=== PATIENT | male | born 1970 | race Two or more races ===

== ENCOUNTER 2018-06-16 17:56 | Inpatient (IN) | payer OTHER ==
[~2018-06-16] VITALS: Ht 170.2 cm; Wt 77.8 kg
[2018-06-16 18:49] LABS: Basophils # (auto) 0 uL; Basophils % (auto) 0.3 % (0.0-2.0); Eosinophils # (auto) 0.2 uL; Eosinophils % (auto) 1.6 % (0.0-7.0); Hemoglobin 14.7 g/dL (13.5-17.5); Lymphocytes # (auto) 0.9 uL; Lymphocytes % (auto) 9.8 % (10.0-50.0); Mean Corpuscular Hemoglobin 30.3 pg (28.0-32.0); Mean Corpuscular Hgb Conc. 33.4 g/dL (32.0-36.0); Mean Corpuscular Volume 90.7 fL (80.0-100.0); Monocytes # (auto) 0.8 uL; Monocytes % (auto) 8.5 % (0.0-12.0); Neutrophils # (auto) 7.6 uL; Neutrophils % (auto) 79.8 % (37.0-80.0); Nucleated Red Blood Cells % 0.1 %; Platelet Count (auto) 168 10^3/uL (140-450); Red Blood Cells 4.85 10^6/uL (4.5-5.90); White Blood Cell 9.6 10^3/uL (4.4-10.8)
[2018-06-16 19:08] LABS: Alanine Aminotransferase 25 U/L (16-61); Albumin 3.3 g/dL (3.4-5.0); Anion Gap 8 (5-15); Aspartate Aminotransferase 15 U/L (15-37); Blood Urea Nitrogen 25 mg/dL (7-18); Calcium 8.5 mg/dL (8.5-10.1); Carbon Dioxide 23 mmol/L (21-32); Chloride 113 mmol/L (98-107); GFR African American 80 mL/min; GFR Non-African American 66 mL/min; Glucose 129 mg/dL (74-106); Potassium 3.3 mmol/L (3.5-5.1); Sodium 144 mmol/L (136-145)
[2018-06-16 19:13] LABS: Alkaline Phosphatase 79 U/L (45-117); Bilirubin, Total 0.5 mg/dL (0.2-1.0); Total Protein 5.9 g/dL (6.4-8.2)
[2018-06-16] MEDS ORDERED: ASPirin 81 mg TAB PO ONE (19:15)
[2018-06-16] MEDS ORDERED: MORPHINE SULFATE 4 MG/ML SYR/VIAL ONE (19:55)
[2018-06-16] MEDS ORDERED: ONDANSETRON HCL 4 MG/2 ML VIAL ONE (19:55)
[2018-06-16 19:56] LABS: INR 1.11 (0.9-1.15); Partial Thromboplastin Time 22.9 sec (23.78-33.04); Prothrombin Time 11.8 sec (9.27-12.13)
[2018-06-16] MEDS ORDERED: ONDANSETRON HCL 4 MG/2 ML VIAL IV ONE (20:30)
[2018-06-16] MEDS ORDERED: MORPHINE SULFATE 4 MG/ML SYR/VIAL IV ONE (20:30)
[2018-06-16] MEDS ORDERED: diphenhdrAMINE HCL 50 MG/1 ML VL IV ONE (22:00)
[2018-06-16] MEDS ORDERED: ACETAMINOPHEN 325 MG TAB PO PRN (23:00)
[2018-06-16] MEDS ORDERED: cloNIDine HCL 0.1 MG TAB PO PRN (23:00)
[2018-06-16] MEDS ORDERED: TEMAZEPAM 15 MG CAP PO PRN (23:00)
[2018-06-16] MEDS ORDERED: ONDANSETRON HCL 4 MG/2 ML VIAL IV PRN (23:00)
[2018-06-16] MEDS ORDERED: NITROGLYCERIN 0.4 MG SL TAB SL PRN (23:00)
[2018-06-16] MEDS ORDERED: MORPHINE SULF INJ 2 MG/ML SYRINGE 1ML IV PRN (23:00)
[2018-06-17] MEDS ORDERED: DEXTROSE (50%) 50ML SYRG IV PRN (00:45)
[2018-06-17 00:50] VITALS: BP 136/79
--- NOTE | 2018-06-17 00:50 | NUR ---
Telemetry admit from ER AXEL OBRIEN admitted to Telemetry unit after SBAR received. Patient oriented to Mamie Gee, primary RN, unit, room, bed, and unit policies regarding patient care and visiting hours. Patient now on continuous telemetry monitoring, tele box # [id number] and telemetry reading on arrival to unit is SR 71 . Patient placed on bedside oxygen, weighed by bed scale and encouraged to call if they need something. All questions and concerns addressed, patient verbalized understanding. FALL RISK PRECAUTIONS IN PLACE; PATIENT STATED THAT HE HAD A FALL AT HOME DURING HYPOGLYCEMIC EPISODE. PATIENT REPORTS GENERALIZED WEAKNESS. PATIENT DENIES HEAD INJURY. PATIENT DENIES DIZZINESS, DENIES NAUSEA, DENIES PAIN. PATIENT A/O X4, ANSWERS IN COMPLETE SENTENCES AND MAKES APPROPRIATE EYE CONTACT. PATIENT STATES THAN HE WEARS GLASSES AND THAT TOOK THEM HOME. PERSONAL BELONGINGS FORM SIGNED AND CHARTED. LUNG SOUNDS ARE CLEAR. BOWEL SOUNDS PRESENT IN ALL FOUR QUADRANTS. S KIN IS INTACT. PATIENT IN BED, BED IS LOCKED AT LOWEST POSITION. BED RAILS UP X2 AND HEAD OF BED IS UP 30 DEGREES FOR SAFETY PRECAUTIONS. BEDSIDE TABLE WITHIN REACH. CALL LIGHT WITHIN REACH. DISCUSSED POC WITH PATIENT AND INSTRUCTED PATIENT TO CALL PRN; PATIENT VERBALIZED UNDERSTANDING. PATIENT VERBALIZES HYPOGLYCEMIA SIGNS AND SYMPTOMS; INSTRUCTED PATIENT TO CALL USING CALL LIGHT IF S/SX ARE PRESENT. WILL CONTINUE TO MONITOR Q1H AND PRN.
[2018-06-17 05:02] VITALS: BP 141/81
[2018-06-17 07:06] LABS: BUN/Creatinine Ratio 20.6; Calcium 9.7 mg/dL (8.5-10.1); Potassium 4.1 mmol/L (3.5-5.1)
--- NOTE | 2018-06-17 07:30 | NUR ---
OPEN PT RESTING IN BED AWAKE A&O WITH NO C/O PAIN TELE IN PLACE, IV X2 PT BED IN LOW POSITION AND CALL LIGHT IN PLACE. NO S/S OF DISTRESS OR DISCOMFORT WILL CONTINUE TO MONITOR
--- NOTE | 2018-06-17 07:30 | NUR ---
OPEN PT RESTING IN BED AWAKE A&O WITH NO C/O PAIN PT AND SON AT BEDSIDE TELE IN PLACE, BED IN LOW POSITION, CALL LIGHT IN REACH POC DISCUSSED WITH PT, PT AND FAMILY VERBALIZED UNDERSTANDING WILL CONTINUE TO MONITOR
[2018-06-17] MEDS: InsuLIN REG 1unit/0.01ml Soln (100units/ml) SC SCH ×2 (07:37→12:11)
[2018-06-17] MEDS: ACCU-CHEK COMFORT CURVE STRIP VI SCH ×2 (07:37→12:08)
[2018-06-17] MEDS ORDERED: INSLANTI SC (07:56)
--- NOTE | 2018-06-17 07:57 | NUR ---
ENDORSED PATIENT CARE TO DAY SHIFT NURSE JANINA TAYLOR. PATIENT IS A/O X 4. NO S/SX OF DISTRESS, SOB OR PAIN.
[2018-06-17 08:30] VITALS: BP 133/101
[2018-06-17] MEDS ORDERED: ASPirin 81 mg TAB PO SCH (10:00)
[2018-06-17] MEDS ORDERED: FAMOTIDINE 20 MG TAB PO SCH (10:00)
[2018-06-17 12:30] VITALS: BP 143/92
--- NOTE | 2018-06-17 15:11 | NUR ---
DR WILKES AT BEDSIDE
[2018-06-17 16:23] VITALS: BP 149/95
--- NOTE | 2018-06-17 17:25 | NUR ---
DISCHARGE Discharge instructions given as ordered. Encourage to follow up with PMD as instructed. All questions and concerns addressed. Patient verbalized understanding. Medication reconciliation form completed and copy given to patient. IV removed with catheter intact, pressure dressing applied. Telemetry unit returned to ICU. Patient taken to vehicle via wheelchair with all personal belongings, accompanied by staff and family member. No distress noted at time of departure.
== END 2018-06-17 17:00 | disposition home or self-care (01) | DRG 637 ==
LOC: ER 18:04 → TELE 23:01 → TELE-WESTW 23:53
PROVIDERS: ADMIT Nurse Practitioner; ATTEND Internal Medicine
DX: E10.649 Type 1 diabetes mellitus with hypoglycemia without coma (principal); G93.41 Metabolic encephalopathy; N18.9 Chronic kidney disease, unspecified; I12.9 Hypertensive chronic kidney disease with stage 1 through stage 4 chronic kidney disease, or unspecified chronic kidney disease; E10.22 Type 1 diabetes mellitus with diabetic chronic kidney disease; Z79.4 Long term (current) use of insulin; Z94.0 Kidney transplant status; Z94.83 Pancreas transplant status
CPT/HCPCS: 36415; 70450; 71045; 72125; 80048; 80053; 82962; 83735; 83880; 84443; 84484; 85025; 85379; 85610; 85730; 93005; 93306; 94761; 96374; 96375; G0378; J1815; J2405

== ENCOUNTER 2023-02-09 20:34 | Emergency (ER) | payer OTHER ==
[~2023-02-09] VITALS: Ht 170.2 cm; Wt 83.0 kg
[~2023-02-09 20:34] MED LIST: INSLANTI SC
[2023-02-09 20:45] VITALS: BP 168/96; PULSE 98; RESP 20; O2SAT 99
== END 2023-02-10 00:53 | disposition left against medical advice (07) ==
LOC: ER 20:34
DX: R73.9 Hyperglycemia, unspecified (principal); Z53.21 Procedure and treatment not carried out due to patient leaving prior to being seen by health care provider
CPT/HCPCS: 82962